=== PATIENT | female | born 1985 | race Asian ===

== ENCOUNTER 2021-02-14 08:59 | Outpatient (CLI) | payer BC, SELFPAY ==
--- NOTE | 2021-02-14 09:07 | US_ITS ---
WS: [id number] ULTRASOUND PELVIS TECHNIQUE: Transabdominal and transvaginal. ULTRASOUND PELVIS TECHNIQUE: Transabdominal. CLINICAL INFORMATION: ABNORMAL UTERINE BLEEDING : No. COMPARISON: None. FINDINGS: History of prior benign uterine mass removal. Uterus Orientation: retroverted Size: 6.7 cm x 5.6 cm x 5.1 cm. Masses: Several small fibroids measuring up to 1.5 cm Cervix: 4.2 cm. Endometrium: Normal. Endometrium thickness: 0.5 cm. Adnexa: Left ovarian cyst measuring 3.7 x 1.7 x 3.6 cm Right ovary size: 2.7 cm x 1.7 cm x 2.7 cm. Right ovary volume: 6.4 ccm3. Left ovary size: 4.7 cm x 3.3 cm x 3.3 cm. Left ovary volume: 26.3 ccm3 Free fluid: None. Other findings: None. US/US pelvic with transvaginal IMPRESSION: 1. Retroverted uterus with several small intramural fibroids. 2. Normal endometrium measuring 4.6 mm. 3. Normal cervix. 4. No adnexal masses. 5. Simple Left ovarian cyst measuring 3.7 x 1.7 x 3.6 cm 6. No free fluid in the cul-de-sac.
== END 2021-02-14 09:00 | disposition home or self-care (01) ==
PROVIDERS: Visit Provider Registered Nurse
DX: N93.9 Abnormal uterine and vaginal bleeding, unspecified (principal); N85.4 Malposition of uterus; N83.292 Other ovarian cyst, left side
CPT/HCPCS: 76830; 76856

== ENCOUNTER 2022-05-29 07:13 | Outpatient (CLI) | payer BC, SELFPAY ==
--- NOTE | 2022-05-29 | US_ITS ---
WS: [id number] Complete ABDOMINAL ULTRASOUND HISTORY: UPPER ABD PAIN, NAUSEA AND VOMITING COMPARISON: None available. Liver: 19.5 cm in length. Moderately enlarged liver. No mass or dilatation. Portal Vein: Normal hepatopetal flow with monophasic waveform. Gallbladder: Normally distended with no gallstones, wall thickening or pericholecystic fluid. Gallbladder wall thickness: 0.2 cm. Pancreas: Normal size and echogenicity. CBD: 0.4 cm. Right kidney: 12.0 cm x 6.1 cm x 4.5 cm. No mass, cortical thickening or hydronephrosis. Left kidney: 12.7 cm x 6.6 cm x 5.2 cm. No mass, cortical thickening or hydronephrosis. Spleen: Normal size and echogenicity. Abdominal aorta and IVC are within normal limits. No ascites. US/US abdomen complete* [id number] IMPRESSION: 1. Very minimal enlargement of the liver. 2. Otherwise abdomen ultrasound is negative.
== END 2022-05-29 07:14 | disposition home or self-care (01) ==
LOC: RAD 07:14
PROVIDERS: PCP Family Medicine; Visit Provider Family Medicine
DX: R11.2 Nausea with vomiting, unspecified (principal); R10.11 Right upper quadrant pain; R10.12 Left upper quadrant pain
CPT/HCPCS: 76700

== ENCOUNTER → 2022-08-19 11:40 | Outpatient (BNVA) | payer BC, SELFPAY | PROVIDERS: PCP Family Medicine; Visit Provider Nurse Practitioner Women's Health | DX: N93.9 Abnormal uterine and vaginal bleeding, unspecified (principal); I10 Essential (primary) hypertension; R07.9 Chest pain, unspecified; R94.39 Abnormal result of other cardiovascular function study; R87.612 Low grade squamous intraepithelial lesion on cytologic smear of cervix (LGSIL); R87.810 Cervical high risk human papillomavirus (HPV) DNA test positive; R10.2 Pelvic and perineal pain | CPT/HCPCS: 84443; 85025; 87491; 87591; 87624; 87661 ==

== ENCOUNTER 2022-08-27 06:53 | Outpatient (CLI) | payer BC, SELFPAY ==
[2022-08-27] VITALS (22 sets, daily range): BP systolic 123–191; BP diastolic 63–109; PULSE 22–125; RESP 15–64; TEMP 36.4–37; O2SAT 95–99; BMI 33.3
[2022-08-27] MEDS: diphenhydrAMINE 50 mg Capsule PO (07:18)
[2022-08-27] MEDS: aspirin 325 mg Tablet PO (07:19)
--- NOTE | 2022-08-27 07:30 | XACV_ITS ---
Exam Room: 2 Ht: 175 cm Wt: 75 kg BSA: 1.92 m2 Gender: Female : 1985 Any Known Allergies: Ibuprofen Exam Priority: Routine Procedure(s): Procedure Description: Diagnostic procedure Procedure Description: Left Heart Catheterization Procedure Description: Left ventriculography Procedure Description: Coronary Angiography Diagnostic Cath Status: Elective Diagnostic Findings * INDICATION: 37-year-old woman with past medical history of hypertension, family history of CAD, hypothyroidism who was referred for evaluation of chest pain. She had been noticing substernal chest discomfort. It happens both at rest and exertion. She underwent exercise stress test that was abnormal and showed ST depressions in inferolateral leads. * No significant disease noted in the Left Main, Left Anterior Descending, Right, or Circumflex coronary arteries. * Coronary angiography shows right dominance. Conclusions 1. No significant disease noted in the Left Main, Left Anterior Descending, Right, or Circumflex coronary arteries. 2. Normal left ventricular systolic function. Ejection fraction of 65%. Recommendations * Aggressive risk factor control including blood pressure control. * Outpatient cardiology follow up in 4 weeks. Interventional RX Recommendation: medical therapy and/or counseling Diagnostic RX Recommendation: medical therapy and/or counseling Anticoagulation: Heparin Ventriculography Ejection Fraction: 65.0 % Pressures Phase:Rest AO : 118 / 87 ( 103 ) @ 8:53:00 AM 119 / 84 ( 102 ) @ 8:54:00 AM 122 / 92 ( 108 ) @ 8:55:00 AM 165 / 105 ( 133 ) @ 8:59:00 AM 171 / 83 ( 127 ) @ 8:59:00 AM LV : 166 / -10 / 14 @ 8:58:00 AM 178 / 0 / 22 @ 8:59:00 AM 181 / - @ 8:59:00 AM Valves Phase:DefaultPhase AV : 16.0 @ 9:07:15 AM 16.0 @ 9:07:15 AM AV Mean Gradient: 14.0 @ 9:07:15 AM 14.0 @ 9:07:15 AM Clinical Evaluation EBL: 5mL-10mL Procedural Details Pre-Procedure Time Out. Identified patient by full name and date of as verbalized by the patient/guarantor. Does the consent match the physician's order: Yes. Accurate & Complete Informed Consent: Yes. Inpatient/Outpatient History & Physical on Chart: Yes. If H&P is completed, is and addenduem needed: No; If yes, is the addendum complete: N/A. Visualize and Verify Site with Patient/Guarantor: N/A. Relevant Radiology Images available: Yes. Pre-op teaching completed and patient verbalized understanding. The risks, benefits, and alternatives of sedation and/or procedure were discussed by physician. The patient agrees to continue. Procedure started. Current Diagnosis : Chest Pain. [facility] Clinical Fraility Score: 2: Well. 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 Chest Pain Symptom Assessment: Atypical Angina. Correct patient, site and procedure confirmed by cath team. Current diagnosis: Chest Pain. PERRLA. 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 Lungs clear x 5 lobes. IV Site on Arrival: 20 gauge in the left anticubital. IV Fluids: 0.9% NaCl at KVO. 0 mL infused prior to laborer road. Pre Procedural Pulses: bilateral dorsalis pedis was 3+. Pre Procedural Pulses: bilateral posterior tibial was 3+. Pre Procedural Pulses: bilateral radial was 3+. Oxygen started at 2liters/min via nasal canula. right groin was prepped with chloroprep then draped in the usual sterile fashion. right radial was prepped with chloroprep then draped in the usual sterile fashion. Physician notified. Baseline sample Acquired. HR: 70 BPM. Physician arrived. Physician scrubbed in. Immediate Pre-Procedure Time Out. Correct Patient: Yes; Correct Procedure: Yes; Correct Site: Yes; Correct Patient Position: Yes; Correct Supplies: Yes; Dried Flammable Prep: Yes; Blood Products Available: N/A;. Lidocaine 1% infiltrated to the right radial. Arterial access obtained. A 5 kazakh TIG catheter in over wire. Multiple views taken of left coronary artery. Catheter redirected to the RCA. Multiple views taken of right coronary artery. Catheter removed over the exchange wire. A 5 kazakh Straight Pig catheter in over wire. EDP Sample taken: LV 166/-10,14; HR: 81 BPM; SpO2: 99%. LV gram performed in PIÑA @ 10 mL/second for a total of 30 mL. EDP Sample taken: LV 178/-1,22; HR: 85 BPM; SpO2: 99%. Pullback taken: LV 181/-2,22; AO 165/105(133); Mean: 14mmHg, Peak to Peak: 16mmHg, SEP: 21sec/min; HR: 82 BPM; SpO2: 99%. Catheter removed over the exchange wire. A TR Band was successful obtaining hemostatsis at the Right Radial artery insertion site. Physician scrubbed out. Post Procedure: Pulses reassessed and unchanged. PERRLA. 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 No VTE prophylaxis required. Medication's Wasted: Lidocaine 1% = 2 mL. Medication's Wasted: Nitro = 49.8 mg. Medication's Wasted: Other = Fentanyl 25 mg. Medication's Wasted: Heparin = 1000 units. Total IV fluids: 31 mL. Post-op diagnosis: No CAD. Complications: None. Vital chart was stopped. Estimated blood loss: 5mL-10mL. Responsiveness - Normal response to verbal stimuli; alert and oriented, PERRLA. Airway - Unaffected, no intervention required; spontaneous ventilation. Circulation: W/N/L, pulses unchanged. Nausea/Vomiting: No. Procedure completed. Patient transferred by wheelchair to CPRU. Access Site Site: Right Radial artery Sheath Size: 6 Fr Hemostasis Method: TR Band Hemostasis Success: Successful Procedure Medications Start: 8:35 AM Stop: 8:35 AM Medication: Fentanyl Amount: 50 mcg Route: I.V. Start: 8:44 AM Stop: 8:44 AM Medication: Versed Amount: 1 mg Route: I.V. Start: 8:47 AM Stop: 8:47 AM Medication: Versed Amount: 1 mg Route: I.V. Start: 8:47 AM Stop: 8:47 AM Medication: Fentanyl Amount: 25 mcg Route: I.V. Start: 8:50 AM Stop: 8:50 AM Medication: Nitrogylcerin Amount: 200 mcg Route: I.A. Start: 8:52 AM Stop: 8:52 AM Medication: Heparin Amount: 5000 units Route: I.V. I, the attending physician, have reviewed and verified all procedure medications. Yes, all medications given per verbal order History/Risk Factors Hypertension: Yes Dyslipidemia: No Peripheral Arterial Disease (PAD): No Myocardial Infarction (OK): No Obesity: No Renal Disease: No Prior Interventions PCI: No CABG: No Valve Surgery: No Report Signatures Finalized by Jim Villela MD on 08/31/2022 06:04 PM
[2022-08-27 07:39] LABS: Basophils # 0.1 10^3/uL (0.0-0.1); Basophils % 0.6 %; Eosinophils # 0.4 10^3/uL (0.0-0.8); Eosinophils % 4.3 %; Hematocrit 43.2 % (37.0-47.0); Mean Corpuscular HGB Conc 32.4 g/dL (30.0-36.0); Mean Corpuscular Hemoglobin 29.1 pg (28.0-34.0); Mean Corpuscular Volume 89.8 fl (81-99); Mean Platelet Volume 8.4 fL (7.4-10.4); Monocytes # 0.7 10^3/uL (0.2-0.9); Monocytes % 6.8 %; Neutrophils # 5.43 10^3/uL (1.8-7.7); Nucleated Red Blood Cells % 0 %; Platelet Count 383 10^3/cmm (130-400); Red Blood Count 4.81 10^6/uL (4.1-5.3); White Blood Count 9.5 10^3/uL (4.0-10.0)
[2022-08-27 08:07] LABS: Anion Gap 15.6 (5-19); Blood Urea Nitrogen 14 mg/dL (6-20); Calcium 9.5 mg/dL (8.5-10.5); Carbon Dioxide 27 mmol/L (22-29); Chloride 98 mmol/L (98-107); Creatinine Clr Calc Pharmacy 151.6783; Glomerular Filtration Rate 112.5 mL/min (90-130); Glucose 110 mg/dL (65-115); Osmolality Calculated 285 mOsm/kg (285-295); Potassium 3.6 mmol/L (3.5-5.1); Sodium 137 mmol/L (136-145)
--- NOTE | 2022-08-27 08:27 | W.PM.OPSUD ---
Surgery/Procedure H&P Update DATE OF PROCEDURE: August 27, 2022 DATE H&P PERFORMED: 08/13/22 H&P UPDATE INFORMATION: I have reviewed H&P completed within last 30 days, I have examined patient prior to procedure and No changes to prior documentation PREOP DIAGNOSIS: Chest pain/ abnormal stress test PRIMARY INDICATION FOR PROCEDURE: Chest pain/ abnormal stress test PLANNED PROCEDURE: Operation Date: 08/27/22 08:30 Proposed Procedures p Left heart cath 04458,R94.39(Left) - Jim Villela M.D Possible percutaneous coronary intervention PATIENT REASSESSED PRIOR TO SEDATION, WITH NO CHANGE NOTED: Yes PHYSICAL EXAM: alert, oriented x 3, clear to auscultation bilaterally and regular rate & rhythm AIRWAY EVAL/ANESTHESIA PLAN: normal airway, ASA III, Local Anesthesia, Risks, benefits & alternatives of sedation and/or procedure discussed and Patient agrees to continue as planned ADDITIONAL INFORMATION: Moderate sedation
--- NOTE | 2022-08-27 09:10 | SUR.PHASEII ---
Received the patient back from a diagnostic [facility] via wheelchair. Patient ambulated to the bed without difficulty. A & O x3. veterinary technician placed and vital signs obtained. TR band intact to the right wrist. no bleeding or hematoma noted. palpable radial pulse. no other assessment changes noted from pre cath assessment.
--- NOTE | 2022-08-27 10:15 | SUR.PHASEII ---
Letting the air out of the TR band per protocol
--- NOTE | 2022-08-27 11:40 | SUR.PHASEII ---
Dr Villela at bedside to update the patient and her spouse. New orders received for IV BP meds.
--- NOTE | 2022-08-27 11:45 | SUR.PHASEII ---
TR band off. Site cleansed with warm water and patted dry. a large band aid was applied to the site. no bleeding or hematoma noted. palpable radial pulse.
[2022-08-27] MEDS: hyDRALAzine 20 mg/mL INJ 1 mL 10 MG IVP (12:04)
--- NOTE | 2022-08-27 12:15 | ECG_ITS ---
[facility] Test Date: 2022-08-27 Pat Name: Luis Alberto Sutherland Department: Room: Gender: Female Expediter: : 1985 Requested By: Jim Villela Order Number: [id number] Imani MD: Jim Villela M.D. Measurements Intervals [place] Rate: 116 P: 50 MS: 144 QRS: 87 QRSD: 111 T: -18 QT: 338 QTc: 470 Interpretive Statements SINUS TACHYCARDIA POSSIBLE LEFT ATRIAL ENLARGEMENT [-0.1mV P-WAVE IN V1/V2] MODERATE INTRAVENTRICULAR CONDUCTION DELAY [110+ ms QRS DURATION] ST DEVIATION AND MODERATE T-WAVE ABNORMALITY, CONSIDER LATERAL ISCHEMIA [-0.1+ mV T-WAVE IN I/aVL/V5/V6] ST DEVIATION AND MODERATE T-WAVE ABNORMALITY, CONSIDER INFERIOR ISCHEMIA [-0.1+ mV T-WAVE IN II/aVF] No previous ECG available for comparison Electronically Signed On 08-27-2022 16:28:36 ECHO VASC TECH by Jim Villela M.D. [id number]
[2022-08-27] MEDS: LORazepam 2 mg/mL INJ 1 mL 0.5 MG IVP (12:29)
[2022-08-27] MEDS: metoprolol tartrate 1 mg/1 mL SDV 5 mL 5 MG IVP (12:42)
--- NOTE | 2022-08-27 12:51 | SUR.PHASEII ---
At 1207 the patients spouse called this nurse to the room stating that she was having CP. The patient states that her CP is 10/10 with no other complaints other than that her face was hot. HR was 120s and climbing. BP 157/93. A stat EKG was ordered and Dr. Villela was notoified. Dr Villela at bedside at 1230. Ativan 0.5mg IV was ordered and given with CP now at 5/10. HR 117 with BP of 157/88. At [address] Villela ordered for the patient to be admitted to CSU for overnight observation and to also give Lopressor 5mg SIVP.
--- NOTE | 2022-08-27 13:04 | SUR.PHASEI ---
1.5MG OF ATIVAN WAS WASTED WITH EMILIANO BONNER RN WITNESS.
--- NOTE | 2022-08-27 13:05 | SUR.PHASEI ---
Patient transferred via wheelchair to CSU room 106. Report called to JOSE MARTIN Wells.
--- NOTE | 2022-08-27 13:10 | PC.NURSE ---
1.5 mg ativan wasted by obi ugalde.
--- NOTE | 2022-08-27 13:32 | USCV_ITS ---
Luis Alberto Sutherland Age: 37 Gender: F : 1985 Exam Date: 08/27/2022 17:18 Ordering Phys: Jim Villela M.D ([email or web address]) Technologist: Zach Linton [place] [facility] [place]: chest pain/tachycardia BP: 136 / 88 HR: 96 Rhythm: Sinus Technical Quality: Adequate MEASUREMENTS (Male / Female) Normal Values 2D ECHO LV Diastolic Diameter PLAX 3.1 cm 4.2 - 5.9 / 3.9 - 5.3 cm LV Systolic Diameter PLAX 2.0 cm IVS Diastolic Thickness 1.0 cm 0.6 - 1.0 / 0.6 - 0.9 cm IVS Systolic Thickness 1.3 cm LVPW Diastolic Thickness 2.4 cm 0.6 - 1.0 / 0.6 - 0.9 cm LVPW Systolic Thickness 1.9 cm LVOT Diameter 2.0 cm LV Ejection Fraction 2D Teich 68.3 % LV Ejection Fraction MOD 2C 62.2 % LV Ejection Fraction 2C AL 62.9 % LA Diameter 3.5 cm LA Width 2.6 cm LA Height 4.3 cm RA Width 2.2 cm RA Height 3.9 cm Aorta at Sinotubular Diameter 2.4 cm IVC Diameter 1.1 cm M-MODE Aortic Annulus Diameter 3.2 cm LA Ao Ratio MM 1.1 MV E Point Septal Separation 0.3 cm DOPPLER AV Peak Velocity 158.0 cm/s LVOT Peak Velocity 119.0 cm/s AV Area Cont Eq vti 2.2 cm squared AV Area Cont Eq pk 2.4 cm squared MV Peak Velocity 104.0 cm/s MV Area PHT 5.5 cm squared Mitral E to A Ratio 0.7 MV E' Velocity 32.0 cm/s Mitral E to MV E' Ratio 4.7 Mitral E to LV E' Lateral Ratio 4.0 Mitral E to LV E' Septal Ratio 5.8 TR Peak Velocity 263.6 cm/s TR Peak Gradient 27.8 mmHg TR Mean Velocity 205.5 cm/s TR Mean Gradient 17.4 mmHg TR Velocity Time Integral 56.5 cm Right Atrial Pressure 3.0 mmHg Pulmonary Artery Systolic Pressu 30.8 mmHg PV Peak Velocity 123.7 cm/s RV Acceleration Time 0.1 s RV Ejection Time 0.3 s RV AcT/ET 0.4 FINDINGS Left Ventricle Left ventricle is normal in size. LV systolic function is normal with EF of 60 to 65%. No regional wall motion abnormalities are seen. Grade 1 diastolic dysfunction. Right Ventricle Normal in size and function Right Atrium Normal in size Left Atrium Normal in size Mitral Valve Structurally normal mitral valve. Trace mitral regurgitation Aortic Valve Structurally normal aortic valve. No significant stenosis or regurgitation is seen. Tricuspid Valve Mild tricuspid regurgitation. Insufficient TR jet to calculate RVSP Pulmonic Valve Not well visualized Pericardium Normal Aorta Normal in size IVC Appears to be normal CONCLUSIONS LV systolic function is normal with EF of 60 to 65% Grade 1 diastolic dysfunction Trace mitral regurgitation Mild tricuspid regurgitation No comparison studies are available Jim Villela MD (Electronically Signed) Final Date: 28 August 2022 07:03 S
[2022-08-27] MEDS: sodium chloride 0.9% 1,000 ML 100 ML IV (13:52)
--- NOTE | 2022-08-27 14:38 | PC.NURSE ---
Patient arrived from [facility] at 1330. Patient has been pain free sense arrival to the floor. Blood pressure 149/83 heart rate 94. Patient is stable. at bedside. Nurse will continue to monitor
[2022-08-28 00:24] VITALS: BP 147/79; PULSE 79; RESP 18; O2SAT 94
[2022-08-28 03:28] LABS: Basophils # 0.1 10^3/uL (0.0-0.1); Basophils % 0.4 %; Eosinophils # 0.4 10^3/uL (0.0-0.8); Eosinophils % 3.5 %; Hematocrit 41.5 % (37.0-47.0); Hemoglobin 13.4 g/dL (11.5-15.3); Lymphocytes % 26.2 %; Mean Corpuscular HGB Conc 32.3 g/dL (30.0-36.0); Mean Corpuscular Hemoglobin 28.9 pg (28.0-34.0); Mean Corpuscular Volume 89.4 fl (81-99); Mean Platelet Volume 8.6 fL (7.4-10.4); Monocytes # 0.8 10^3/uL (0.2-0.9); Monocytes % 6.8 %; Neutrophils # 7.09 10^3/uL (1.8-7.7); Neutrophils % 62.7 %; Nucleated Red Blood Cells % 0 %; Platelet Count 350 10^3/cmm (130-400); Red Blood Count 4.64 10^6/uL (4.1-5.3); Red Cell Distribution Width 12.2 % (12.1-15.1); White Blood Count 11.3 10^3/uL (4.0-10.0)
[2022-08-28 03:59] LABS: Anion Gap 15.6 (5-19); Blood Urea Nitrogen 13 mg/dL (6-20); Carbon Dioxide 24 mmol/L (22-29); Chloride 102 mmol/L (98-107); Creatinine Clr Calc Pharmacy 151.6783; Glomerular Filtration Rate 112.5 mL/min (90-130); Glucose 112 mg/dL (65-115); Osmolality Calculated 287 mOsm/kg (285-295); Potassium 3.6 mmol/L (3.5-5.1); Sodium 138 mmol/L (136-145)
[2022-08-28 04:00] VITALS: BP 103/76; PULSE 84; RESP 16; TEMP 37.1; O2SAT 96
[2022-08-28 06:00] VITALS: PULSE 74
[2022-08-28 08:00] VITALS: BP 149/79; PULSE 78; RESP 25; TEMP 36.7
--- NOTE | 2022-08-28 08:04 | P.DS_ITS ---
Discharge Providers Date of Admission: 08/27/2022 Date of Discharge: August 28, 2022 Attending Provider at Admission: Jim Villela MD Attending Provider at Discharge: Jim Villela M.D Primary Care Provider: Orly Vergara DO Reason for Visit Reason for Visit: R94.39 Brief History: 37-year-old woman with past medical history of hypertension has been having shortness of breath, chest pain and had abnormal stress test who has presented for left heart cath with possible percutaneous coronary intervention. Hospital Course Hospital Course Patient's coronary angiogram was unremarkable. Blood pressure was elevated. She received hydralazine to which she had a reaction with flushing of the face, chest pain and tachycardia. We observed her overnight. Chest pain resolved and tachycardia improved. Her antihypertensive medications were uptitrated. She was discharged home in a stable condition. Physical Exam Narrative: GENERAL: Patient is alert, awake and oriented x3. [] NECK: No jugular vein distension. [] HEENT: No cyanosis. No icterus. No pallor. [] HEART: Regular S1 and S2. No murmur, rub or gallop. [] LUNGS: Clear to auscultate bilaterally. [] CENTRAL NERVOUS SYSTEM: Grossly nonfocal. [] EXTREMITIES: Lower extremities with no edema bilaterally. Pulses palpable in the lower extremities, both dorsalis pedis and posterior tibial. [] Discharge Data Studies Completed and Pending Completed Studies During Hospitalization Category Date Time Status CV. echo complete* [id number] Routine Ultrasound 08/27/22 13:32 Completed Pending at discharge Category Date Time Status [employer]PERVISOR request for service Routine Exams 08/27/22 07:30 Taken Laboratory Results WBC 11.3 10^3/uL (4.0-10.0) H 08/28/22 03:01 RBC 4.64 10^6/uL (4.1-5.3) 08/28/22 03:01 Hgb 13.4 g/dL (11.5-15.3) 08/28/22 03:01 Hct 41.5 % (37.0-47.0) 08/28/22 03:01 MCV 89.4 fl (81-99) 08/28/22 03:01 MCH 28.9 pg (28.0-34.0) 08/28/22 03:01 MCHC 32.3 g/dL (30.0-36.0) 08/28/22 03:01 RDW 12.2 % (12.1-15.1) 08/28/22 03:01 Plt Count 350 10^3/cmm (130-400) 08/28/22 03:01 MPV 8.6 fL (7.4-10.4) 08/28/22 03:01 Neut % (Auto) 62.7 % 08/28/22 03:01 Lymph % (Auto) 26.2 % 08/28/22 03:01 [place] % (Auto) 6.8 % 08/28/22 03:01 Eos % (Auto) 3.5 % 08/28/22 03:01 Baso % (Auto) 0.4 % 08/28/22 03:01 Neut # (Auto) 7.09 10^3/uL (1.8-7.7) 08/28/22 03:01 Lymph # (Auto) 3.0 10^3/uL (0.8-4.8) 08/28/22 03:01 [place] # (Auto) 0.8 10^3/uL (0.2-0.9) 08/28/22 03:01 Eos # (Auto) 0.4 10^3/uL (0.0-0.8) 08/28/22 03:01 Baso # (Auto) 0.1 10^3/uL (0.0-0.1) 08/28/22 03:01 Nucleated RBC % (auto) 0 % 08/28/22 03:01 Nucleated RBCs # 0.0 /100WBC 08/28/22 03:01 Sodium 138 mmol/L (136-145) 08/28/22 03:01 Potassium 3.6 mmol/L (3.5-5.1) 08/28/22 03:01 Chloride 102 mmol/L (98-107) 08/28/22 03:01 Carbon Dioxide 24 mmol/L (22-29) 08/28/22 03:01 Anion Gap 15.6 (5-19) 08/28/22 03:01 BUN 13 mg/dL (6-20) 08/28/22 03:01 Creatinine 0.6 mg/dL (0.5-0.9) 08/28/22 03:01 GFR Calculation 112.5 mL/min (90-130) 08/28/22 03:01 Glucose 112 mg/dL (65-115) 08/28/22 03:01 Calculated Osmolality 287 mOsm/kg (285-295) 08/28/22 03:01 Calcium 9.0 mg/dL (8.5-10.5) 08/28/22 03:01 Vitals Last Vital Signs Temp 98.7 F 08/28/22 04:00 Pulse 74 08/28/22 06:00 Resp 16 08/28/22 04:00 BP 103/76 08/28/22 04:00 Pulse Ox 96 08/28/22 04:00 O2 Del Method 08/28/22 04:00 O2 Flow Rate 2 08/27/22 13:00 Discharge Plan Discharge Patient Disposition: Home Prescriptions: New losartan 50 mg tablet 50 mg PO BID Qty: 120 2RF Continued levothyroxine 100 mcg tablet 100 mcg PO DAILY hydrochlorothiazide 25 mg tablet 25 mg PO DAILY cholecalciferol (vitamin D3) 125 mcg (5,000 unit) capsule 125 mcg PO DAILY clonidine HCl 0.1 mg tablet 0.1 mg PO BID PRN (Reason: hypertensive emergency) valacyclovir 500 mg tablet 500 mg PO DAILY ondansetron HCl 4 mg tablet 4 mg PO Q8H PRN (Reason: Nausea) cetirizine [All Day Allergy (cetirizine)] 10 mg tablet 10 mg PO DAILY PRN (Reason: Allergy Symptoms) Vit E tablet 1 tab PO DAILY Multivitamin 1 tab PO DAILY Discontinued losartan 25 mg tablet 50 mg PO DAILY losartan 100 mg tablet 100 mg PO BID Qty: 90 3RF Discharge Orders: Discharge Order (Routine); Ordered 08/28/22 Ordered By: Jim Villela Referrals: Jim Villela M.D [Physician] - 09/02/22 12:30 pm Diet: Low Salt Activity: Increase activity as tolerated Patient Instructions: Midazolam (By injection), Fentanyl (By injection), Moderate Sedation (DC), After Radial Heart Catheterization (GEN) Activity Restrictions/Additional Instructions: No lifting more than 10 pounds with the right arm for 5 days Stand Alone Forms: Work/School Release Discharge Date/Time: 08/28/22 09:58 Discharge Attestations Time Spent in Discharge Care*: greater than 30 min Quality Metrics Clinical Quality Measures [ No reported AMI, CVA or VTE this stay] Coding Level of Care Code Acute Code for Chg Fwd
--- NOTE | 2022-08-28 09:59 | PC.NURSE ---
Pt discharged to home with spouse. IV cath removed with cathlon intact. Voiced understanding of dishcharge instructions. Belongings sent home with pt.
== END 2022-08-28 09:58 | disposition home or self-care (01) ==
LOC: CCL 10:22 → CSU 13:58
PROVIDERS: PCP Family Medicine; Visit Provider Internal Medicine
DX: R07.89 Other chest pain (principal); I10 Essential (primary) hypertension; Z82.49 Family history of ischemic heart disease and other diseases of the circulatory system; E03.9 Hypothyroidism, unspecified
CPT/HCPCS: 36415; 80048; 85025; 93005; 93306; 93458; 96361; 96365; 96376; 99152; 99153; C1769; C1887; C1894; J0360; J1644; J2060; J2250; J3010; J3490; J7030; Q0163; Q9967

== ENCOUNTER → 2022-08-29 15:30 | Outpatient (BNVA) | payer BC, SELFPAY | PROVIDERS: PCP Family Medicine; Visit Provider Nurse Practitioner Women's Health | DX: N93.9 Abnormal uterine and vaginal bleeding, unspecified (principal) | CPT/HCPCS: 76830 ==

== ENCOUNTER 2022-09-08 07:07 | Outpatient (CLI) | payer BC, SELFPAY ==
[2022-09-15 17:10] LABS: Metanephrines Total Urine 525 mL; Urine Metanephrines Total 277 mcg/24 h (115-695)
== END 2022-09-08 07:08 | disposition home or self-care (01) ==
PROVIDERS: PCP Family Medicine; Visit Provider Internal Medicine
DX: N93.9 Abnormal uterine and vaginal bleeding, unspecified (principal); R87.612 Low grade squamous intraepithelial lesion on cytologic smear of cervix (LGSIL)
CPT/HCPCS: 83835

== ENCOUNTER → 2022-09-16 15:25 | Outpatient (BNVA) | payer BC, SELFPAY | PROVIDERS: PCP Family Medicine; Visit Provider Obstetrics & Gynecology | DX: R94.39 Abnormal result of other cardiovascular function study (principal) | CPT/HCPCS: 83001; 84146; 84702 ==

== ENCOUNTER → 2022-09-30 13:00 | Outpatient (BNVA) | payer BC, SELFPAY | PROVIDERS: PCP Family Medicine; Visit Provider Obstetrics & Gynecology | DX: Z01.818 Encounter for other preprocedural examination (principal); R87.810 Cervical high risk human papillomavirus (HPV) DNA test positive | CPT/HCPCS: 81025; 88305 ==

== ENCOUNTER → 2022-10-01 10:33 | Outpatient (BNVA) | payer BC, SELFPAY | PROVIDERS: PCP Family Medicine; Visit Provider Podiatrist Foot & Ankle Surgery | DX: M21.622 Bunionette of left foot (principal); M21.621 Bunionette of right foot; M72.2 Plantar fascial fibromatosis | CPT/HCPCS: 73630 ==

== ENCOUNTER 2022-10-03 08:01 | Outpatient (CLI) | payer BC, SELFPAY ==
--- NOTE | 2022-10-03 08:45 | USCV_ITS ---
Luis Alberto Sutherland Age: 37 Gender: F : 1985 Exam Date: 10/03/2022 08:27 Ordering Phys: Yesenia Bernard Technologist: Sharon Méndez [place] [facility] [place] Indication: weakness and pain warren wrist- s/p post cath rt radial artery Risk Factors: n/a Previous Vascular Surgery: recent cath - right radial artery access Right BP: 160.00 / 99.00 Left BP: / RIGHT LEFT PSV PSV (cm/s) (cm/s) Waveform Waveform Triphasic 132.1 Subclavian Proximal Triphasic 110.3 Axillary Triphasic 130.6 Brachial Mid Triphasic 65.3 Radial Proximal Monophasic 45.2 Radial Mid Monophasic 25.0 Radial at Wrist Triphasic 40.8 Ulnar Proximal Monophasic 45.4 Ulnar Mid Monophasic 55.8 Ulnar at Wrist FINDINGS No pressure for brachial index done due to recent rt radial cath and minor swelling. Allens test performed on both right radial and right ulnar arteries with normal reperfusion. Normal Doppler waveforms and velocities in the subclavian, brachial and proximal radial and ulnar arteries on the right side Diminished Doppler velocity and abnormal Doppler waveform in the mid and distal ulnar artery on the right side Normal Doppler velocities with the abnormal Doppler waveform in the mid and distal ulnar artery on the right CONCLUSIONS 1. Patent right radial artery on the right side. 2. Abnormal Doppler features in the radial artery may suggest distal occlusive disease 3. Positive Gm's test, suggesting adequate perfusion No similar previous studies are available for comparison Dr Saúl Knight MD [facility] (Electronically Signed) Final Date: 04 October 2022 17:54 S
== END 2022-10-03 08:02 | disposition home or self-care (01) ==
LOC: RAD 08:03
PROVIDERS: PCP Family Medicine; Visit Provider Nurse Practitioner Family
DX: M25.531 Pain in right wrist (principal); R53.1 Weakness
CPT/HCPCS: 93931

== ENCOUNTER → 2022-10-20 09:25 | Outpatient (BNVA) | payer BC, SELFPAY | PROVIDERS: PCP Family Medicine; Referring Provider Podiatrist Foot & Ankle Surgery; Visit Provider Student in an Organized Health Care Education/Training Program | DX: M76.31 Iliotibial band syndrome, right leg (principal); M25.561 Pain in right knee | CPT/HCPCS: 73560; 73565 ==

== ENCOUNTER 2022-10-29 09:07 | Day surgery (SDC) | payer BC, SELFPAY ==
[2022-10-27 10:59] VITALS: BMI 31.8
--- NOTE | 2022-10-27 11:21 | ANES.PREANE2 ---
Pre-Anesthetic Assessment Height/Weight: Height 1.52 m Weight 73.936 kg Preop Diagnosis: Chest pain/ abnormal stress test Cervical Cone Biopsy Familial anesthetic complications: none Social No alcohol and No tobacco Exam alert, oriented x 3, clear to auscultation bilaterally and regular rate & rhythm Airway Mallampati: Class I Dentition: other (missing) CV/HEM Stable Angina (clear cath, normal echo) and Hypertension (requiring multiple medications) GI Gastroesophageal Reflux Disease Metabolic Thyroid Disease Anesthetic Plan ASA status: 2 Anesthesia: General Risk of > 500 ml blood loss (7ml/kg in children): No Medications/Allergies Home Medications Medication Instructions Recorded Confirmed Last Taken Type cholecalciferol (vitamin D3) 125 125 mcg PO DAILY 11/28/20 10/27/22 10/27/22 History mcg (5,000 unit) capsule hydrochlorothiazide 25 mg tablet 25 mg PO DAILY 11/28/20 10/27/22 10/27/22 History levothyroxine 100 mcg tablet 100 mcg PO DAILY 11/28/20 10/27/22 10/27/22 History Multivitamin 1 tab PO DAILY 08/13/22 10/27/22 10/27/22 History Vit E 1 tab PO DAILY 08/13/22 10/27/22 10/27/22 History cetirizine 10 mg tablet (All Day 10 mg PO DAILY PRN Allergy Symptoms 08/13/22 10/27/22 10/27/22 History Allergy (cetirizine)) clonidine HCl 0.1 mg tablet 0.1 mg PO BID PRN hypertensive 08/13/22 10/27/22 09/29/22 History emergency ondansetron HCl 4 mg tablet 4 mg PO Q8H PRN Nausea 08/13/22 10/27/22 07/28/22 History valacyclovir 500 mg tablet 500 mg PO DAILY 08/13/22 10/27/22 10/27/22 History metoprolol tartrate 25 mg tablet 25 mg PO BID #180 tabs 09/02/22 10/27/22 10/27/22 Rx losartan 50 mg tablet 50 mg PO BID #180 tabs 09/05/22 10/27/22 10/27/22 Rx metoprolol tartrate 50 mg tablet 50 mg PO BID #180 tabs 09/22/22 10/27/22 10/27/22 Rx ketoconazole 2 % topical cream 1 applic topical BID #15 grams 09/24/22 10/27/22 10/27/22 Rx methylprednisolone 4 mg tablets in 4 mg PO DAILY #21 ea 10/01/22 10/27/22 10/27/22 Rx a dose pack (Medrol (Isaias)) Allergies Allergy/AdvReac Type Severity Reaction Status Date / Time hydralazine Allergy Severe SVT Verified 10/27/22 10:56 ibuprofen Allergy Unknown ADR-Abdominal Verified 10/27/22 10:56 Pain PFSH Anesthesia Medical History Essential (primary) hypertension Genital herpes oral and on buttocks GERD (gastroesophageal reflux disease) Hypothyroidism No pertinent past medical history neghx: dm,dvt/pe PCP: Dr. Ursula DO Surgical History H/O exploratory laparotomy (~2013) removal of ovarian cyst-- benign. Performed in the [facility] History of carpal tunnel surgery of left wrist History of carpal tunnel surgery of right wrist Family History Father Diabetes Family/Other Ovarian cancer maternal aunt Denies family history of Colon cancer Heart disease Breast cancer Family history of thyroid problem Hypertension Uterine cancer Stroke Hyperchloremia Female Reproductive History Date of last menstrual period: 10/17/22 Data Anesthesia Cardiac Studies: Echocardiogram 08/27/22
[2022-10-27 11:51] LABS: OR HCG Qualitative Urine Negative (Negative)
[2022-10-27 12:45] LABS: Basophils # 0.1 10^3/uL (0.0-0.1); Basophils % 0.6 %; Eosinophils # 0.1 10^3/uL (0.0-0.8); Eosinophils % 0.6 %; Hematocrit 41.1 % (37.0-47.0); Hemoglobin 13.4 g/dL (11.5-15.3); Lymphocytes # 3.4 10^3/uL (0.8-4.8); Lymphocytes % 37.7 %; Mean Corpuscular HGB Conc 32.6 g/dL (30.0-36.0); Mean Corpuscular Hemoglobin 29.5 pg (28.0-34.0); Mean Corpuscular Volume 90.3 fl (81-99); Mean Platelet Volume 8.3 fL (7.4-10.4); Monocytes # 0.6 10^3/uL (0.2-0.9); Monocytes % 6.5 %; Neutrophils # 4.94 10^3/uL (1.8-7.7); Neutrophils % 54.3 %; Nucleated Red Blood Cells % 0 %; Platelet Count 422 10^3/cmm (130-400); Red Blood Count 4.55 10^6/uL (4.1-5.3); Red Cell Distribution Width 11.9 % (12.1-15.1); White Blood Count 9.1 10^3/uL (4.0-10.0)
[2022-10-27 13:05] LABS: Alanine Aminotransferase 33 U/L (0-33); Albumin Level 4.9 g/dL (3.5-5.2); Alkaline Phosphatase 53 U/L (35-105); Anion Gap 12.6 (5-19); Aspartate Amino Transferase 16 U/L (0-32); Blood Urea Nitrogen 12 mg/dL (6-20); Calcium 8.7 mg/dL (8.5-10.5); Carbon Dioxide 24 mmol/L (22-29); Chloride 99 mmol/L (98-107); Globulin 2.9 g/dL (1.3-4.6); Glomerular Filtration Rate 138.8 mL/min (90-130); Glucose 94 mg/dL (65-115); Osmolality Calculated 274 mOsm/kg (285-295); Potassium 3.6 mmol/L (3.5-5.1); Sodium 132 mmol/L (136-145); Total Bilirubin 0.3 mg/dL (0.15-1.2); Total Protein 7.8 g/dL (6.6-8.7)
[2022-10-29] VITALS (7 sets, daily range): BP systolic 102–135; BP diastolic 55–72; PULSE 54–76; RESP 14–18; TEMP 36.1–36.3; O2SAT 97–100
[2022-10-29] MEDS: scopolamine 1.5 Patch 1 PATCH TRANSDERMA (09:52)
[2022-10-29] MEDS: sodium chloride 0.9% 500 ML IV (09:57)
--- NOTE | 2022-10-29 09:59 | ANE.PACU2 ---
Inpatient post-anesthesia follow up: Airway intact: Yes Vital signs: Temperature 97 F Pulse Rate 54 Respiratory Rate 16 Blood Pressure 124/72 Pulse Oximetry 97 Oxygen Delivery Me thod Room Air Oxygen Flow Rate Fraction of Inspir ed Oxygen Hydration adequate: Yes Nausea and vomiting: No Pain level: 1 Mental status: Baseline
--- NOTE | 2022-10-29 10:43 | W.PM.OPSUD ---
Surgery/Procedure H&P Update DATE OF PROCEDURE: October 29, 2022 DATE H&P PERFORMED: 10/27/22 H&P UPDATE INFORMATION: I have reviewed H&P completed within last 30 days, I have examined patient prior to procedure and No changes to prior documentation PREOP DIAGNOSIS: High-grade intraepithelial squamous lesion PLANNED PROCEDURE: Operation Date: 10/29/22 11:35 Proposed Procedures p Cervical cone biopsy 73041,N87.1(Not Applicable) - Freddy Gibson MD
[2022-10-29] MEDS: sodium chloride 0.9% 1,000 ML 30 ML IV (10:51)
[2022-10-29] MEDS: ceFAZolin 2,000 MG in sodium chloride 0.9% (plus) 50 ML 100 MG IV (12:43)
[2022-10-29] MEDS: lidocaine-epi 1% 20 mL INJ INJECTION (13:26)
--- NOTE | 2022-10-29 13:51 | PM.OP ---
Operative Report Date of procedure: October 29, 2022 Pre-op diagnosis: Preop Diagnosis High-grade intraepithelial squamous lesion Post-op diagnosis: Same as above Procedure done: Cone biopsy Surgeon: Freddy Gibson MD Estimated blood loss (mL): 10 IV fluids (mL): 1,250 Complications: None Procedure: After informed consent, the patient was taken to the operating room where general anesthesia was administered without difficulty. After administration of general anesthesia, the patient was placed in the dorsal lithotomy position, and prepped and draped in the usual sterile fashion. A time-out procedure was performed. The patient was examined under anesthesia and found to have a normal uterus with normal adnexa. A weighted speculum was then placed in the patient's vagina and the anterior lip of the cervix grasped with the singed toothed tenaculum A uterine sound was then advanced into the cervix to determine its direction and length. The decending cervical branchs of the uterine arteries were ligated with 2-0 Vicryl bilaterally at the level of the internal os. Attention was then turned to the cervix where it was stain with Lugol?s solution to hightlight the lesion. The paracervical area was then circumferentially infiltrated using Lidocaine 1% with epinephrine. A Own[employer] Cone Biopsy Excisor was used to cut the cone biopsy in circular fashion and following removal of the specimen a suture was placed at the 12 o?clock location and fixed in formalin. The Sturmdorf suture with 3-O Vycril was applied. Bleeding was minimal. The patient tolerated the procedure well, sponge, lap and needle counts were correct times two She was taken to the recovery room in good condition.
--- NOTE | 2022-10-29 14:04 | ANE.PACU2 ---
Inpatient post-anesthesia follow up: Airway intact: Yes Vital signs: Temperature 97.0 F Pulse Rate 73 Respiratory Rate 17 Blood Pressure 118/63 Pulse Oximetry 100 Oxygen Delivery Me thod Room Air Oxygen Flow Rate 6 Fraction of Inspir ed Oxygen Hydration adequate: Yes Nausea and vomiting: No Pain level: 1 Mental status: Baseline
== END 2022-10-29 14:44 | disposition home or self-care (01) ==
PROVIDERS: PCP Family Medicine; Visit Provider Obstetrics & Gynecology
PROC: 0UB97ZZ Excision of Uterus, Via Natural or Artificial Opening (ICD-10-PCS; CPT 57520; principal; 2022-10-29 11:25)
DX: R87.613 High grade squamous intraepithelial lesion on cytologic smear of cervix (HGSIL) (principal); I20.8 Other forms of angina pectoris; I10 Essential (primary) hypertension; K21.9 Gastro-esophageal reflux disease without esophagitis; E03.9 Hypothyroidism, unspecified
CPT/HCPCS: 57522; 36415; 80053; 84703; 85025; 86850; 86900; 88307; J0690; J1100; J2405; J2704; J3010; J7030; J7040

== ENCOUNTER → 2023-08-20 11:18 | Outpatient (BNVA) | payer OTHER, SELFPAY | PROVIDERS: Visit Provider Family Medicine | DX: I10 Essential (primary) hypertension (principal); E03.9 Hypothyroidism, unspecified; K21.9 Gastro-esophageal reflux disease without esophagitis | CPT/HCPCS: 80053; 80061; 84443; 85025 ==

== ENCOUNTER → 2023-12-28 12:08 | Outpatient (BNVA) | payer OTHER, SELFPAY | PROVIDERS: PCP Family Medicine; Visit Provider Obstetrics & Gynecology | DX: D06.9 Carcinoma in situ of cervix, unspecified (principal); E03.9 Hypothyroidism, unspecified; Z48.816 Encounter for surgical aftercare following surgery on the genitourinary system | CPT/HCPCS: 83001; 84443; 87624 ==

== ENCOUNTER → 2024-01-19 08:01 | Outpatient (BNVA) | payer OTHER, SELFPAY | PROVIDERS: PCP Family Medicine; Visit Provider Obstetrics & Gynecology | DX: C53.9 Malignant neoplasm of cervix uteri, unspecified (principal); N83.8 Other noninflammatory disorders of ovary, fallopian tube and broad ligament | CPT/HCPCS: 76830 ==

== ENCOUNTER → 2024-03-29 09:26 | Day surgery (SDC) | payer OTHER, SELFPAY | LOC: OPS 05-19 12:20 | PROVIDERS: PCP Family Medicine Adult Medicine; Visit Provider Obstetrics & Gynecology | DX: Z01.818 Encounter for other preprocedural examination (principal) | CPT/HCPCS: 93005 ==

== ENCOUNTER 2024-04-05 14:09 | Inpatient (IN) | payer OTHER, SELFPAY ==
--- NOTE | 2024-03-29 09:59 | ECG_ITS ---
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 Measurements Intervals [place] Rate: 55 P: 41 [place]: 180 QRS: 65 QRSD: 100 T: 35 QT: 415 QTc: 398 Interpretive Statements SINUS BRADYCARDIA Compared to ECG 08/27/2022 12:14:02 Sinus tachycardia no longer present Intraventricular conduction delay no longer present T-wave abnormality no longer present Possible ischemia no longer present Electronically Signed On 03-29-2024 16:45:23 CDT by Jim Villela M.D. [id number]
[2024-03-29 10:13] LABS: Charge for UA Resulting for Rev
[2024-03-29 10:21] LABS: Basophils % 0.5 %; Eosinophils # 0.2 10^3/uL (0.0-0.8); Eosinophils % 2.4 %; Lymphocytes # 2.6 10^3/uL (0.8-4.8); Lymphocytes % 29.9 %; Mean Corpuscular HGB Conc 32.1 g/dL (30-55); Mean Corpuscular Hemoglobin 28.8 pg (27-33); Mean Corpuscular Volume 89.7 fl (85-98); Mean Platelet Volume 8.3 fL (7.4-10.4); Monocytes # 0.7 10^3/uL (0.2-0.9); Monocytes % 7.8 %; Neutrophils # 5.15 10^3/uL (1.8-7.7); Neutrophils % 58.9 %; Nucleated Red Blood Cells % 0 %; Platelet Count 447 10^3/cmm (157-399); Red Blood Count 4.68 10^6/uL (3.85-5.65); Red Cell Distribution Width 12.7 % (12.1-15.1); White Blood Count 8.73 10^3/uL (3.29-11.43)
[2024-03-29 10:23] LABS: Bilirubin Urine Negative (Negative); Blood Urine Negative (Negative); Glucose Urine UA Negative (Normal); Ketones Urine Negative (Negative); Leukocyte Esterase Urine Negative (Negative); Nitrate Urine Negative (Negative); Protein Urine 1+ (Negative); Specific Gravity, Urine 1.026 (1.005-1.030); Urine Appearance Clear (CLEAR); Urine Color Yellow (Yellow); pH Urine 5.5 (5-7)
--- NOTE | 2024-03-29 10:24 | P.ANESASSM_ITS ---
Pre-Anesthetic Assessment Height/Weight: Height 1.52 m Preop Diagnosis: Uterine fibroid, chronic pelvic pain, right ovarian cyst/mass Operation Date: 04/05/24 10:35 Proposed Procedures p Total Abdominal Hysterectomy 11624,R10.2, D25.9, N83.8(Not Applicable) - Freddy Gibson MD s Laparoscopic Oophorectomy(Right) - Freddy Gibson MD Familial anesthetic complications: None Social No alcohol and No tobacco Exam alert, oriented x 3, clear to auscultation bilaterally and regular rate & rhythm CV/HEM Stable Angina and Hypertension Negative cath - no blockages No CP recently hx heart block GI Gastroesophageal Reflux Disease Metabolic Thyroid Disease Anesthetic Plan ASA status: 3 Anesthesia: General Risk of > 500 ml blood loss (7ml/kg in children): No Other Pertinent Information alpha gal allergy - anaphylaxis and GI upset Medications/Allergies Home Medications Medication Instructions Recorded Confirmed Last Taken Type losartan 50 mg tablet 50 mg PO BID #180 tabs 09/10/23 03/29/24 03/29/24 Rx metoprolol tartrate 50 mg tablet 50 mg PO BID #180 tabs 09/10/23 03/29/24 03/29/24 Rx valacyclovir 500 mg tablet 500 mg PO DAILY #90 tabs 12/25/23 03/29/24 03/29/24 Rx levothyroxine 125 mcg tablet 125 mcg PO DAILY #60 tabs 01/18/24 03/29/24 03/29/24 Rx amlodipine 5 mg tablet 5 mg PO DAILY #90 tabs 02/01/24 03/29/24 03/29/24 Rx pantoprazole 40 mg tablet,delayed 40 mg PO DAILY #60 tabs 02/15/24 03/29/24 03/29/24 Rx release metoclopramide HCl 10 mg tablet 10 mg PO QID PRN nausea and 03/08/24 03/29/24 03/25/24 Rx (Reglan) vomiting #120 tabs Allergies Allergy/AdvReac Type Severity Reaction Status Date / Time hydralazine Allergy Severe SVT Verified 03/08/24 14:51 ibuprofen Allergy Unknown ADR-Abdominal Verified 03/08/24 14:51 Pain Alpha-Gal Allergy ALGY-Anaphy Verified 03/29/24 09:47 (Frrnzownc-Xbmvb-8,3-Gala laxis PFSH Anesthesia Medical History (Updated 03/28/24 @ 19:47 by Jesus Lazo MD) Abnormal stress test Chronic vomiting 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 Ursula DO Hypothyroidism GERD (gastroesophageal reflux disease) Essential (primary) hypertension Surgical History Hx of esophagogastroduodenoscopy 03/31/2023 H/O exploratory laparotomy (~2013) removal of Lt ovarian cyst-- benign. Performed in the [facility] History of carpal tunnel surgery of left wrist History of carpal tunnel surgery of right wrist Family History Father Diabetes Hypertension Family/Other Ovarian cancer maternal aunt Hypertension Mother Hypertension Denies family history of Colon cancer Heart disease Breast cancer Family history of thyroid problem Uterine cancer Stroke Hyperchloremia Social History (Updated 03/25/24 @ 08:25 by Lupis Claros LPN) Smoking and tobacco/nicotine status: never used tobacco/nicotine Data Anesthesia 03/29/24 10:00 03/29/24 10:00 Short CBC 03/29/24 Range/Units 10:00 WBC 8.73 (3.29-11.43) 10^3/uL Hgb 13.50 (11.27-16.99) g/dL Hct 42.0 (36-47) % MCV 89.7 (85-98) fl Plt Count 447 H (157-399) 10^3/cmm Neut % (Auto) 58.9 % Neut # (Auto) 5.15 (1.8-7.7) 10^3/uL Urine 03/29/24 Range/Units 09:40 Urine Color Yellow (Yellow) Urine Appearance Clear (CLEAR) Urine pH 5.5 (5-7) Ur Specific [place] 1.026 (1.005-1.030) Urine Protein 1+ A (Negative) Urine Glucose (UA) Negative (Normal) Urine Ketones Negative (Negative) Urine Nitrate Negative (Negative) Urine Bilirubin Negative (Negative) Ur Leukocyte Esterase Negative (Negative) Cardiac Studies: 2 Echocardiogram 08/27/22 Cardiac Event Monitor 06/12/23
[2024-03-29 10:37] LABS: Alanine Aminotransferase 28 U/L (0-33); Albumin Level 4.6 g/dL (3.5-5.2); Alkaline Phosphatase 65 U/L (35-105); Aspartate Amino Transferase 19 U/L (0-32); Blood Urea Nitrogen 13 mg/dL (6-20); Calcium 8.7 mg/dL (8.5-10.5); Carbon Dioxide 23 mmol/L (22-29); Chloride 101 mmol/L (98-107); Globulin 2.9 g/dL (1.3-4.6); Glomerular Filtration Rate 111.9 mL/min (90-130); Glucose 106 mg/dL (65-115); Osmolality Calculated 287 mOsm/kg (285-295); Sodium 138 mmol/L (136-145); Total Bilirubin 0.2 mg/dL (0.15-1.2); Total Protein 7.5 g/dL (6.6-8.7)
[2024-03-29 10:37] LABS: UA Manual Slide Review YES; UA Slide Review UA Slide Review Perf
[2024-03-29 10:39] LABS: Add Urine Culture? No
[2024-04-05] VITALS (20 sets, daily range): BP systolic 114–150; BP diastolic 69–85; PULSE 59–98; RESP 14–20; TEMP 36.4–36.9; O2SAT 90–100; BMI 35.1
[2024-04-05] MEDS: sodium chloride 0.9% 500 ML IV (09:35)
[2024-04-05] MEDS: scopolamine 1.5 Patch 1 PATCH TRANSDERMA (09:36)
[2024-04-05 09:40] LABS: OR HCG Qualitative Urine Negative (Negative)
--- NOTE | 2024-04-05 09:46 | W.PM.OPSUD ---
Surgery/Procedure H&P Update DATE OF PROCEDURE: April 05, 2024 DATE H&P PERFORMED: 03/25/24 H&P UPDATE INFORMATION: I have reviewed H&P completed within last 30 days, I have examined patient prior to procedure and No changes to prior documentation PREOP DIAGNOSIS: Chronic pelvic pain, right ovarian cyst/mass, dyspareunia, dysmenorrhea PLANNED PROCEDURE: Operation Date: 04/05/24 10:35 Proposed Procedures p Total Abdominal Hysterectomy 89488,R10.2, D25.9, N83.8(Not Applicable) - Freddy Gibson MD s Laparoscopic Oophorectomy(Right) - Freddy Gibson MD
[2024-04-05] MEDS: ceFAZolin 2,000 mg SDV 2000 MG IVP (09:54)
[2024-04-05] MEDS: sodium chloride 0.9% 1,000 ML 30 ML IV (10:02)
[2024-04-05] MEDS: metroNIDAZOLE IV 500 MG/100 ML PREMIX 100 MG IV (10:07)
[2024-04-05] MEDS: BUPivacaine liposome 13.3 mg/mL SDV 20 mL 266 MG INFILTRATI (12:59)
[2024-04-05] MEDS: BUPivacaine 0.5% INJ 30 mL INJECTION (13:00)
--- NOTE | 2024-04-05 14:02 | W.PM.BPON ---
Date of Procedure: 04/05/24 Surgeon: Freddy Gibson MD Incident Response Engineer(s): Procedure(s) performed: Total abdominal hysterectomy with right salpingo-oophorectomy Findings of the procedure(s): Enlarged irregular uterus Estimated blood loss: 50 Specimen(s) removed: Uterus and right fallopian tube and ovary Post-operative diagnosis: Status post KASSIE and RSO
--- NOTE | 2024-04-05 14:03 | P.OP_ITS ---
Operative Report Date of procedure: April 05, 2024 Pre-op diagnosis: Pelvic pain Uterine fibroid Dysmenorrhea Dyspareunia Abnormal uterine bleed Post-op diagnosis: same Post-op findings: Enlarged irregular uterus Procedure done: Total abdominal hysterectomy Right salpingo-oophorectomy Specimens removed/disposition: Uterus Right fallopian tube and ovary Surgeon: Freddy Gibson MD Estimated blood loss (mL): 50 IV fluids (mL): 1,000 Urine output (mL): 75 Complications: None Procedure: The patient was taken to the operating room, and after adequate level of general anesthesia was achieved, the patient was placed in the Trendelenburg position, prepped and draped in the usual sterile fashion. Subsequently, a Pfannenstiel incision was made and the incision was taken down to the fascia. The fascia was opened up sharply. The fascia was extended to the length of the incision using the Lira scissors. At this time, the rectus muscles were dissected from the fascia superiorly and inferiorly to the symphysis pubis. The midline rectus muscles were opened sharply and extended superiorly and inferiorly. The peritoneum was visualized, grasped, opened sharply, and extended superiorly and inferiorly towards the bladder. The abdominal contents were packed superiorly away from the operative site using the lap packs. At this time, the pelvic organs were noted. The inferior and superior blades were placed in place on the Freddie self-retaining retractor. Bowel was packed away from the operative site. The fundus of the uterus was then grasped with a triple-tooth tenaculum and retracted out of the pelvic cavity into the abdominal site. At this point, Tracie clamps were placed in both right and left adnexal regions. Subsequently, using the LigaSure cautery unit, the round ligaments were grasped, cauterized, and dissected. The bladder flap was then formed and the bladder flap was pushed away down anteriorly over the lower uterine segment, pushed away from the operative site on both the right and left sides. Subsequently, the posterior leaf of the broad ligament was opened sharply and the LigaSure instrument was then placed below the level of the ovary in both the right and left side, care being taken not to damage bowel or uterus and the infundibulopelvic ligament was then gras ped, cauterized, and again dissected. Further dissection of the broad ligament was carried down posteriorly towards the uterine vessels. The bladder was pushed inferiorly down towards the vagina. Subsequently, the uterine vessels were then grasped again with the LigaSure machine, cauterized, and dissected. The cardinal ligaments were further grasped, dissected, and suture ligated, again with the L igaSure machine. At that point, the LigaSure machine instrument was stopped and straight Zeppelin clamps were used on the cardinal ligaments down towards the uterosacral ligaments. The cardinal ligaments were grasped, dissected with a scalpel and then ligated with transfixion sutures with #1 Vicryl suture down to the uterosacral ligaments. The uterosacral ligaments were grasped, dissected, and suture ligated again with #1 Vicryl suture and transfixion sutures. At that time, the bladder had been pushed over the vagina and at this time right-angle Zeppelin clamps were placed on the vagina at the level of the cervix, and using the Noni scissors, the cervix was dissected away from the vagina. At this time, the vaginal cuff was then closed using interrupted sutures of #1 Vicryl suture from the midline to each lateral corner. After the good hemostasis had been achieved in the vaginal cuff, both the right and left adnexa was visualized and no more bleeding was noted. The cuff was intact with no bleeding noted. The bladder was visualized and no bleeding was noted. Seprafilm was then placed over the vaginal cuff. The Freddie self-retaining retractor was removed as well as the anterior and inferior blades. The lap packs were removed, and at this time, general closure of the abdomen was carried out. The peritoneum was closed with a 2-0 Vicryl suture and continuous running suture. The fascia was closed using a #1 Vicryl suture from each corner to the midline. Subcutaneous tissue was cauterized. No bleeding was noted. The subcutaneous tissue was then reapproximated using plain sutures and interrupted sutures, and the skin was closed using Insorb absorbable subcuticular van. The patient tolerated the procedure well and was transferred to the recovery room in excellent condition. The patient returned to the floor for recovery.
--- NOTE | 2024-04-05 14:40 | ANE.PACU2 ---
Inpatient post-anesthesia follow up: Airway intact: Yes Vital signs: Temperature 98.2 F Pulse Rate 72 Respiratory Rate 16 Blood Pressure 132/78 Pulse Oximetry 96 Oxygen Delivery Me thod Room Air Oxygen Flow Rate 6 Fraction of Inspir ed Oxygen Hydration adequate: Yes Nausea and vomiting: No Pain level: 1 Mental status: Baseline
[2024-04-05] MEDS: HYDROcodone-acetaminophen 5-325 mg Tablet PO ×2 (15:17→21:27)
[2024-04-05] MEDS: dextrose 5%-lactated ringers 1,000 ML 125 ML IV ×2 (15:18→23:30)
[2024-04-05] MEDS: HYDROmorphone 1 mg/mL INJ 1 mL 0.4 MG IVP ×2 (17:12→22:12)
--- NOTE | 2024-04-05 17:23 | ECG_ITS ---
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 Measurements Intervals [place] Rate: 99 P: 37 [place]: 156 QRS: 54 QRSD: 101 T: 16 QT: 361 QTc: 464 Interpretive Statements SINUS RHYTHM NONSPECIFIC T-WAVE ABNORMALITY Compared to ECG 03/29/2024 10:15:36 T-wave abnormality now present Sinus bradycardia no longer present Electronically Signed On 04-05-2024 21:39:50 CDT by Saúl Knight M.D. [id number]
--- NOTE | 2024-04-05 17:26 | PC.NURSE ---
THIS SECTIONIZER PUSHED DILAUDID ORDERED AND UNTIL 2-3 MINUTES PATIENT STATED C/O OF CHEST PAIN. VITALS WERE STABLE AND THIS SECTIONIZER ORDERED STAT EKG AND NOTIFIED DR. CHANEL AND HE TOLD US TO CALL HIM WITH RESULTS AND UPDATE.
[2024-04-05] MEDS: losartan 50 mg Tablet PO (18:50)
[2024-04-05] MEDS: docusate sodium 100 mg Capsule PO (18:50)
[2024-04-05] MEDS: metoprolol tartrate 25 mg Tablet 50 MG PO (18:50)
[2024-04-05] MEDS: simethicone 80 mg Chew PO (21:27)
[2024-04-06] VITALS (8 sets, daily range): BP systolic 116–153; BP diastolic 71–88; PULSE 72–87; RESP 16–18; TEMP 36.7–36.9; O2SAT 95–97
[2024-04-06] MEDS: HYDROcodone-acetaminophen 5-325 mg Tablet PO ×3 (04:01→18:34)
[2024-04-06 06:01] LABS: Hematocrit 38.2 % (36-47); Mean Corpuscular HGB Conc 32.5 g/dL (30-55); Mean Corpuscular Hemoglobin 29.1 pg (27-33); Mean Corpuscular Volume 89.7 fl (85-98); Mean Platelet Volume 8.7 fL (7.4-10.4); Platelet Count 389 10^3/cmm (157-399); Red Blood Count 4.26 10^6/uL (3.85-5.65); Red Cell Distribution Width 12.8 % (12.1-15.1); White Blood Count 19.34 10^3/uL (3.29-11.43)
[2024-04-06] MEDS: docusate sodium 100 mg Capsule PO ×2 (09:08→18:33)
[2024-04-06] MEDS: amlodipine 5 mg Tablet PO (09:08)
[2024-04-06] MEDS: losartan 50 mg Tablet PO ×2 (09:08→18:34)
[2024-04-06] MEDS: pantoprazole DR 40 mg Tablet PO (09:08)
[2024-04-06] MEDS: metoprolol tartrate 25 mg Tablet 50 MG PO ×2 (09:08→18:33)
[2024-04-06] MEDS: levothyroxine 125 mcg Tablet PO (09:08)
[2024-04-06] MEDS: valACYclovir 1,000 mg Tablet 500 MG PO (09:49)
[2024-04-06] MEDS: HYDROmorphone 1 mg/mL INJ 1 mL 0.4 MG IVP ×2 (12:27→23:30)
--- NOTE | 2024-04-06 13:47 | PM.PN ---
Subjective Subjective: Mrs. Sutherland 38 years old status post total abdominal hysterectomy with right salpingo-oophorectomy day 1. Refers tenderness at the incision site Vitals/I&O/Wt Last Vital Signs Temp 98.2 F 04/06/24 09:30 Pulse 72 04/06/24 09:30 Resp 16 04/06/24 12:27 BP 132/78 04/06/24 09:30 Pulse Ox 96 04/06/24 09:30 O2 Del Method Room Air 04/06/24 09:30 O2 Flow Rate 6 04/05/24 14:25 04/05/24 04/06/24 04/06/24 22:59 06:59 14:59 Intake Total 1791.667 / 3441.667 208.333 / 208.333 Output Total 875 / 1075 1825 / 2900 600 / 600 Balance -875 / 575 -33.333 / 541.667 -391.667 / -391.667 Weight last 48 hrs Weight 78.925 kg Physical Exam Narrative: GA: Alert and oriented ?3. HEENT: WNL. Heart: Regular rate and rhythm. Lungs: Clear to auscultation bilaterally. Abdomen: Bowel sounds present, nontender, moderate tenderness, incision clean and dry, no redness, pain or edema. 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 Extremities: No edema, no cyanosis, no calves pain. Urinary Catheter Management: Parrish: Cath Placed During This Visit: yes, but has since been removed by the nurse Reason for Continuing Indwelling Catheter: Decision to DC Catheter Urinary Catheter Date of Insertion: 04/05/24 Urinary Catheter Time of Insertion: 12:05 Date Urinary Catheter Removed: 04/06/24 Time Urinary Catheter Discontinued: 05:50 Data 04/07/24 05:31 03/29/24 10:00 A&P Assessment and plan (1) Status post abdominal hysterectomy and right salpingo-oophorectomy: Mrs. Sutherland 38-year-old female is status post total abdominal hysterectomy with right salpingo-oophorectomy postoperative day 1. Tolerating diet well. Ambulating without difficulty. She is afebrile hemodynamically stable. Plan Repeat CBC tomorrow morning Continue postop observation Attestations Medical Necessity Statement*: In my professional opinion per admitting diagnosis Coding Level of Care Code Acute Code for Chg Fwd Diagnoses Status post abdominal hysterectomy and right salpingo-oophorectomy Z90.710; Z90.721; Z90.79
[2024-04-07] MEDS: HYDROcodone-acetaminophen 5-325 mg Tablet PO ×2 (02:39→09:22)
[2024-04-07 04:50] VITALS: BP 126/78; PULSE 82; RESP 16; TEMP 36.8; O2SAT 97
[2024-04-07 05:36] LABS: Hematocrit 36.4 % (36-47); Mean Corpuscular HGB Conc 32.1 g/dL (30-55); Mean Corpuscular Hemoglobin 29.6 pg (27-33); Mean Corpuscular Volume 92.2 fl (85-98); Mean Platelet Volume 8.7 fL (7.4-10.4); Platelet Count 364 10^3/cmm (157-399); Red Blood Count 3.95 10^6/uL (3.85-5.65); Red Cell Distribution Width 12.6 % (12.1-15.1); White Blood Count 14.15 10^3/uL (3.29-11.43)
[2024-04-07 05:55] LABS: Absolute Eosinophils 0.4 10^3/cmm (0.0-0.7); Absolute Segmented Neutrophil 9.8 10/cmm (1.6-7.1); Eosinophils 3 %; Lymphocytes 22 %; Monocytes Absolute 0.8 10^3/cmm (0.1-0.6); Segmented Neutrophils 69 %; Total Cells Counted 100 (0-100)
[2024-04-07 05:56] LABS: Platelet Estimate Normal (Normal)
[2024-04-07] MEDS: levothyroxine 125 mcg Tablet PO (09:22)
[2024-04-07] MEDS: docusate sodium 100 mg Capsule PO (09:22)
[2024-04-07] MEDS: pantoprazole DR 40 mg Tablet PO (09:23)
[2024-04-07] MEDS: metoprolol tartrate 25 mg Tablet 50 MG PO (09:23)
[2024-04-07] MEDS: valACYclovir 1,000 mg Tablet 500 MG PO (09:23)
[2024-04-07 09:25] VITALS: BP 134/84; PULSE 79; RESP 16; TEMP 36.8; O2SAT 95
[2024-04-07 09:31] VITALS: BP 134/84
[2024-04-07] MEDS: losartan 50 mg Tablet PO (09:31)
[2024-04-07] MEDS: amlodipine 5 mg Tablet PO (09:31)
--- NOTE | 2024-04-07 12:41 | P.DS_ITS ---
Discharge Providers IMPROVEMENT MANAGER Date of Admission: 04/05/24 14:09 Date of Discharge: 04/07/24 Attending Provider at Admission: Freddy Gibson MD Attending Provider at Discharge: Freddy Gibson MD Primary Care Provider: Jesus Lazo MD Diagnoses at Discharge Discharge Diagnosis (1) Status post abdominal hysterectomy and right salpingo-oophorectomy: Status: Acute Reason for Visit Reason for Visit: R10.2 Hospital Course Hospital Course Ms. Sutherland is a 38 year old , with a history of chronic pelvic pain, dysmenorrhea, uterine fibroid and right ovarian cyst. Admitted for planned total abdominal hysterectomy with right salpingo-oophorectomy. The procedures were performed without complication. observation significant for chest pain the postoperative day 1 EKG was within normal limits. She is tolerating diet well. Ambulating without difficulty. Pain under control. She is afebrile and hemodynamically stable postoperative day 2. She was counseled regarding pelvic rest for 6 weeks (no sex, no tampons, no vaginal douches). Return to the emergency room if any fever, increased bleeding or pain. Physical Exam Narrative: GA: Alert and oriented ?3. HEENT: WNL. Heart: Regular rate and rhythm. Lungs: Clear to auscultation bilaterally. Abdomen: Bowel sounds present, nontender, minimal tenderness, incision clean and dry, no redness, pain or edema. 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 Extremities: No edema, no cyanosis, no calves pain. Urinary Catheter Management: Parrish: Cath Placed During This Visit: yes, but has since been removed by the nurse Reason for Continuing Indwelling Catheter: Decision to DC Catheter Urinary Catheter Date of Insertion: 04/05/24 Urinary Catheter Time of Insertion: 12:05 Date Urinary Catheter Removed: 04/06/24 Time Urinary Catheter Discontinued: 05:50 History History History 2 Term 2 0 Miscarriages/Ectopic 0 Living Children 1 Discharge Data Studies Completed and Pending Pending at discharge Category Date Time Status Pathology: Surgical [PTH] Routine Pth 04/05/24 13:34 Received Laboratory Results WBC 14.15 10^3/uL (3.29-11.43) H 04/07/24 05:31 RBC 3.95 10^6/uL (3.85-5.65) 04/07/24 05:31 Hgb 11.70 g/dL (11.27-16.99) 04/07/24 05:31 Hct 36.4 % (36-47) 04/07/24 05:31 MCV 92.2 fl (85-98) 04/07/24 05:31 MCH 29.6 pg (27-33) 04/07/24 05:31 MCHC 32.1 g/dL (30-55) 04/07/24 05:31 RDW 12.6 % (12.1-15.1) 04/07/24 05:31 Plt Count 364 10^3/cmm (157-399) 04/07/24 05:31 MPV 8.7 fL (7.4-10.4) 04/07/24 05:31 Neut % (Auto) 58.9 % 03/29/24 10:00 Lymph % (Auto) 29.9 % 03/29/24 10:00 [place] % (Auto) 7.8 % 03/29/24 10:00 Eos % (Auto) 2.4 % 03/29/24 10:00 Baso % (Auto) 0.5 % 03/29/24 10:00 Neut # (Auto) 5.15 10^3/uL (1.8-7.7) 03/29/24 10:00 Lymph # (Auto) 2.6 10^3/uL (0.8-4.8) 03/29/24 10:00 [place] # (Auto) 0.7 10^3/uL (0.2-0.9) 03/29/24 10:00 Eos # (Auto) 0.2 10^3/uL (0.0-0.8) 03/29/24 10:00 Baso # (Auto) 0.0 10^3/uL (0.0-0.1) 03/29/24 10:00 Nucleated RBC % (auto) 0 % 03/29/24 10:00 Total Counted 100 (0-100) 04/07/24 05:31 Atypical Lymphs % Not Reportable 04/07/24 05:31 Segmented Neutrophils 69 % 04/07/24 05:31 Abs Segm Neuts (Man) 9.8 10/cmm (1.6-7.1) H 04/07/24 05:31 Band Neutrophils Not Reportable 04/07/24 05:31 Lymphocytes (Manual) 22 % 04/07/24 05:31 Monocytes (Manual) 6.0 % 04/07/24 05:31 Absolute Monocytes 0.8 10^3/cmm (0.1-0.6) H 04/07/24 05:31 Eosinophils (Manual) 3 % 04/07/24 05:31 Absolute Eosinophils 0.4 10^3/cmm (0.0-0.7) 04/07/24 05:31 Basophils (Manual) 0.0 % 04/07/24 05:31 Absolute Basophils 0.0 10^3/cmm (0.0-0.2) 04/07/24 05:31 Nucleated RBCs # 0.0 /100WBC 03/29/24 10:00 Platelet Estimate Normal (Normal) 04/07/24 05:31 Sodium 138 mmol/L (136-145) 03/29/24 10:00 Potassium 4.0 mmol/L (3.5-5.1) 03/29/24 10:00 Chloride 101 mmol/L (98-107) 03/29/24 10:00 Carbon Dioxide 23 mmol/L (22-29) 03/29/24 10:00 Anion Gap 18.0 (5-19) 03/29/24 10:00 BUN 13 mg/dL (6-20) 03/29/24 10:00 Creatinine 0.6 mg/dL (0.5-0.9) 03/29/24 10:00 GFR Calculation 111.9 mL/min (90-130) 03/29/24 10:00 Glucose 106 mg/dL (65-115) 03/29/24 10:00 Calculated Osmolality 287 mOsm/kg (285-295) 03/29/24 10:00 Calcium 8.7 mg/dL (8.5-10.5) 03/29/24 10:00 Total Bilirubin 0.2 mg/dL (0.15-1.2) 03/29/24 10:00 AST 19 U/L (0-32) 03/29/24 10:00 ALT 28 U/L (0-33) 03/29/24 10:00 Alkaline Phosphatase 65 U/L (35-105) 03/29/24 10:00 Total Protein 7.5 g/dL (6.6-8.7) 03/29/24 10:00 Albumin 4.6 g/dL (3.5-5.2) 03/29/24 10:00 Globulin 2.9 g/dL (1.3-4.6) 03/29/24 10:00 Urine Color Yellow (Yellow) 03/29/24 09:40 Urine Appearance Clear (CLEAR) 03/29/24 09:40 Urine pH 5.5 (5-7) 03/29/24 09:40 Ur Specific Mcclellan 1.026 (1.005-1.030) 03/29/24 09:40 Urine Protein 1+ (Negative) A 03/29/24 09:40 Urine Glucose (UA) Negative (Normal) 03/29/24 09:40 Urine Ketones Negative (Negative) 03/29/24 09:40 Urine Blood Negative (Negative) 03/29/24 09:40 Urine Nitrate Negative (Negative) 03/29/24 09:40 Urine Bilirubin Negative (Negative) 03/29/24 09:40 Urine Urobilinogen 1.0 mg/dL (Negative) 03/29/24 09:40 Ur Leukocyte Esterase Negative (Negative) 03/29/24 09:40 Urine RBC None /hpf (0-2) 03/29/24 09:40 Urine WBC 5-10 /hpf (0-5) H 03/29/24 09:40 Ur Squamous Epith Cells 10-15 /hpf (0-5) H 03/29/24 09:40 Amorphous Sediment Not Reportable 03/29/24 09:40 Urine Bacteria None /hpf (NONE) 03/29/24 09:40 Urine Mucus None /hpf 03/29/24 09:40 Urine HCG, Qual Negative (Negative) 04/05/24 09:03 Blood Type O Positive 04/05/24 09:25 Rho(D) Type Rh positive 04/05/24 09:25 Antibody Screen Negative 04/05/24 09:25 Vitals Last Vital Signs Temp 98.3 F 04/07/24 09:25 Pulse 79 04/07/24 09:25 Resp 16 04/07/24 09:25 BP 134/84 04/07/24 09:31 Pulse Ox 95 04/07/24 09:25 O2 Del Method Room Air 04/07/24 09:25 O2 Flow Rate 6 04/05/24 14:25 Results Labs OB ([facility]): Blood Type O Positive 04/05/24 Antibody Screen Negative 04/05/24 Hct 36.4 % (36-47) 04/07/24 Hgb 11.70 g/dL (11.27-16.99) 04/07/24 Rho(D) Type Rh positive 04/05/24 Plt Count 364 10^3/cmm (157-399) 04/07/24 Hep Bs Antibody 995.6 (11.5-1000) 11/13/22 Rubella IgG Antibody > 500.0 IU/mL (0.0-10.0) H 11/13/22 TSH 0.38 uIU/mL (0.27-4.20) 12/28/23 VZV IgG Antibody 3998.00 index 11/13/22 FSH 5.9 mIU/mL 12/28/23 Ser , Semi-Qnt 1.00 mIU/mL 09/16/22 HCG, Qual Negative (Negative) 09/30/22 Pap Smear Interpret See note 12/28/23 Prolactin 6.85 ng/mL (4.8-23.3) 09/16/22 Discharge Plan Discharge Patient Disposition: Home Condition: Stable Prescriptions: New hydrocodone-acetaminophen 5-325 mg tablet 1 tab PO Q4H PRN (Reason: pain) Qty: 30 0RF metronidazole 500 mg tablet 500 mg PO BID 14 Days Qty: 28 0RF Continued metoclopramide HCl [Reglan] 10 mg tablet 10 mg PO QID PRN (Reason: nausea and vomiting) Qty: 120 5RF Rx Instructions: before meals and bedtime metoprolol tartrate 50 mg tablet 50 mg PO BID Qty: 180 3RF losartan 50 mg tablet 50 mg PO BID Qty: 180 3RF valacyclovir 500 mg tablet 500 mg PO DAILY Qty: 90 0RF amlodipine 5 mg tablet 5 mg PO DAILY Qty: 90 3RF pantoprazole 40 mg tablet,delayed release (DR/EC) 40 mg PO DAILY Qty: 60 0RF levothyroxine 125 mcg tablet 125 mcg PO DAILY Qty: 60 0RF Discharge Orders: Discharge Order (Routine); Ordered 04/07/24 Ordered By: Freddy Gibson Referrals: Freddy Gibson MD [Physician] - 2 weeks Discharge Diet: Usual diet Discharge Activity: Limit activity as instructed Patient Instructions: Hydrocodone/Acetaminophen (By mouth), Acute Wound Care (DC), Salpingo-Oophorectomy (DC), Hysterectomy (DC), OB Abdominal Surgery - [facility], OB Discharge Report, OB Food/Drug Interaction Guide, Opioid Safety, Post Anesthesia Care, Hysterectomy (GEN) Activity Restrictions/Additional Instructions: 1. Please call [facility] clinic on next working day to make your post-operative appointment in 2 weeks. 2. Please stay home until you come back to the clinic on first post- hospatilization check up. 3. Please follow instructions on your medications CAREFULLY. 4. If you have abdominal incision, do not cover it unless dressing is necessary because of drainage. OK to shower, but avoid bath. Leave steri-strips until they fall off. If they are still on one week after surgery, you may remove them. 5. If you had vaginal surgery or vaginal repair, Dr. Gibson may instruct you to take SITZ bath. 6. Yellow, blood tinged odorous vaginal discharge is usually normal after h ysterectomy or vaginal surgeries. 7. No SEXUAL INTERCOURSE, tampons, or douches until you are completely released from the post-operative care. 8. Avoid constipation by eating right and maybe using some Metamucil or Milk of Magnesia. 9. All prescription refills are given during the working hours. Please do no wait till it runs out. Call the clinic at [phone] before your medication runs out. The clinic will get in touch with your doctor to prescribe medications if necessary. 10. Please remain within 40 mile radius from our hospital because emergencies do happen now and then during the post-operative period. 11. If you have stairs at home, take one step at a time slowly and minimize the number of trips. It helps to stay in one floor for the next few days. No lifting except what you can lift by one hand until you are released from the post-operative care. 12. Driving is discouraged until you are well healed. It may be 3-4 weeks before you feel strong enough to drive. You should be able to turn and look through the rear window without pain and you should be able to push the brake pedal very hard without pain before you drive. No fast rules, but SAFETY should be your primary concern. DO NOT drive if you are on sedating medications such as narcotics. 13. Call the clinic (during working hours) to make urgent appointment or go to the Emergency room, if any of the following occurs: i. Vaginal bleeding becomes heavy, more than a period. ii. Incision becomes red and sore, or drains pus. iii. Your TEMPERATURE is over 100.4F or you have chill. iv. IV site becomes red and swollen (a little ``knot?? is usually OK) v. Persistent nausea and vomiting vi. Persistent constipation or diarrhea vii. Rash or allergic reaction to medications. Discharge Attestations IMPROVEMENT MANAGER Time Spent in Discharge Care*: greater than 30 min Coding Level of Care Code Acute Code for Chg Fwd Diagnoses Status post abdominal hysterectomy and right salpingo-oophorectomy Z90.710; Z90.721; Z90.79
[2024-04-07 14:45] VITALS: BP 128/79; PULSE 82; RESP 16; TEMP 36.9; O2SAT 95
== END 2024-04-07 14:45 | disposition home or self-care (01) | DRG 743 ==
LOC: OBGYN 23:29
PROVIDERS: Admitting Provider Obstetrics & Gynecology; PCP Family Medicine Adult Medicine; Visit Provider Obstetrics & Gynecology
PROC: 0UT90ZZ Resection of Uterus, Open Approach (ICD-10-PCS; CPT 58150; principal; 2024-04-05 10:15)
PROC: 0UT90ZZ Resection of Uterus, Open Approach (ICD-10-PCS; CPT 58720; 2024-04-05 10:15)
DX: N94.6 Dysmenorrhea, unspecified (principal); N94.10 Unspecified dyspareunia; N83.201 Unspecified ovarian cyst, right side; G89.29 Other chronic pain; R10.2 Pelvic and perineal pain; I10 Essential (primary) hypertension; E03.9 Hypothyroidism, unspecified; K21.9 Gastro-esophageal reflux disease without esophagitis; D25.1 Intramural leiomyoma of uterus; D25.0 Submucous leiomyoma of uterus; D25.2 Subserosal leiomyoma of uterus; N93.9 Abnormal uterine and vaginal bleeding, unspecified
CPT/HCPCS: 36415; 51702; 80053; 81003; 81015; 81025; 85007; 85025; 85027; 86850; 86900; 88307; 93005; C9290; J0131; J0690; J1100; J1170; J1200; J2250; J2405; J2710; J3010; J3490; J7030; J7040; J7121

== ENCOUNTER → 2024-04-26 12:39 | Outpatient (BNVA) | payer OTHER, SELFPAY | PROVIDERS: PCP Family Medicine Adult Medicine; Visit Provider Nurse Practitioner Women's Health | DX: R35.0 Frequency of micturition (principal) | CPT/HCPCS: 87086 ==

== ENCOUNTER → 2024-10-24 10:08 | Outpatient (BNVA) | payer OTHER, SELFPAY | PROVIDERS: PCP Family Medicine; Visit Provider Family Medicine | DX: E03.9 Hypothyroidism, unspecified (principal) | CPT/HCPCS: 84443 ==

== ENCOUNTER → 2024-12-14 10:19 | Outpatient (BNVA) | payer OTHER, SELFPAY | PROVIDERS: PCP Family Medicine; Visit Provider Nurse Practitioner Family | DX: I10 Essential (primary) hypertension (principal); R07.9 Chest pain, unspecified; R00.2 Palpitations | CPT/HCPCS: 36415; 80053; 83880; 85025; 93005 ==

== ENCOUNTER 2024-12-22 12:41 | Outpatient (CLI) | payer OTHER, SELFPAY ==
--- NOTE | 2024-12-22 12:48 | XR_ITS ---
WS: [id number] PA and lateral chest, 12/22/2024 Clinical Data: left chest pain, high wbc ct Comparison: None. Findings: No nodules, masses or effusions are seen. The pulmonary vascularity is normal. The heart is not enlarged. No pneumonia or pneumothorax is seen. XR/XR chest 2V* [id number] Impression: Negative chest.
== END 2024-12-22 12:42 | disposition home or self-care (01) ==
PROVIDERS: PCP Family Medicine; Visit Provider Family Medicine
DX: R07.9 Chest pain, unspecified (principal); D72.9 Disorder of white blood cells, unspecified
CPT/HCPCS: 71046; 87086

== ENCOUNTER 2025-01-16 12:30 | Oncology outpatient (recurring) (ONCR) | payer OTHER, SELFPAY ==
[2024-12-28 10:42] LABS: Basophils % 0.5 %; Eosinophils # 0.2 10^3/uL (0.0-0.8); Eosinophils % 2.7 %; Hematocrit 41.7 % (36-47); Lymphocytes # 2.8 10^3/uL (0.8-4.8); Lymphocytes % 34.4 %; Mean Corpuscular HGB Conc 32.4 g/dL (30-55); Mean Corpuscular Volume 86.5 fl (85-98); Mean Platelet Volume 8.3 fL (7.4-10.4); Monocytes # 0.7 10^3/uL (0.2-0.9); Monocytes % 9.2 %; Neutrophils # 4.24 10^3/uL (1.8-7.7); Nucleated Red Blood Cells % 0 %; Platelet Count 390 10^3/cmm (157-399); Red Blood Count 4.82 10^6/uL (3.85-5.65); Red Cell Distribution Width 11.9 % (12.1-15.1); White Blood Count 8.02 10^3/uL (3.29-11.43)
[2024-12-28 10:47] LABS: Erythrocyte Sedimentation Rate 8 mm/hr (0-15)
[2024-12-28 10:59] LABS: Alanine Aminotransferase 21 U/L (0-33); Albumin Level 4.6 g/dL (3.5-5.2); Alkaline Phosphatase 76 U/L (35-105); Anion Gap 17.9 (5-19); Aspartate Amino Transferase 18 U/L (0-32); Blood Urea Nitrogen 12 mg/dL (6-20); Calcium 9.2 mg/dL (8.5-10.5); Carbon Dioxide 24 mmol/L (22-29); Chloride 102 mmol/L (98-107); Globulin 3.4 g/dL (1.3-4.6); Glomerular Filtration Rate 137.4 mL/min (90-130); Glucose 97 mg/dL (65-115); Lactate Dehydrogenase 129 U/L (135-214); Osmolality Calculated 290 mOsm/kg (285-295); Potassium 3.9 mmol/L (3.5-5.1); Sodium 140 mmol/L (136-145); Total Bilirubin 0.2 mg/dL (0.15-1.2); Uric Acid 7.8 mg/dL (2.4-5.7)
[2024-12-29 13:19] LABS: Leukemia Profile (BBPL) See Report
[2025-01-22 16:54] LABS: CALR Exon 9 Mutation NOT DETECTED (NOT DETECTED); JAK2 Exon 12 Mutation NOT DETECTED (NOT DETECTED); JAK2 V617 Clinical Indication leukocytosis; JAK2 V617 Mutation NOT DETECTED (NOT DETECTED); MPL Exon 10 Mutation NOT DETECTED (NOT DETECTED); Specimen Source NG
== END 2025-01-23 23:59 | disposition home or self-care (01) ==
PROVIDERS: Internal Medicine; PCP Family Medicine; Visit Provider Family Medicine
DX: Z53.9 Procedure and treatment not carried out, unspecified reason; D72.829 Elevated white blood cell count, unspecified; D75.839 Thrombocytosis, unspecified
CPT/HCPCS: 36415; 80053; 81219; 81270; 81279; 81339; 83615; 84550; 85025; 85651; 88184; 88185

== ENCOUNTER 2025-07-25 08:37 | Oncology outpatient (recurring) (ONCR) | payer OTHER, SELFPAY ==
[2025-07-25 09:04] LABS: Hematocrit 43.9 % (36-47); Hemoglobin 14.10 g/dL (11.27-16.99); Mean Corpuscular HGB Conc 32.1 g/dL (30-55); Mean Corpuscular Hemoglobin 27.2 pg (27-33); Mean Corpuscular Volume 84.6 fl (85-98); Nucleated Red Blood Cells % 0 %; Platelet Count 412 10^3/cmm (157-399); Red Blood Count 5.19 10^6/uL (3.85-5.65); White Blood Count 11.18 10^3/uL (3.29-11.43)
[2025-07-25 09:25] LABS: Alanine Aminotransferase 25 U/L (0-33); Albumin Level 4.7 g/dL (3.5-5.2); Alkaline Phosphatase 65 U/L (35-105); Anion Gap 17.3 (5-19); Aspartate Amino Transferase 22 U/L (0-32); Blood Urea Nitrogen 13 mg/dL (6-20); Calcium 9.5 mg/dL (8.5-10.5); Carbon Dioxide 24 mmol/L (22-29); Chloride 99 mmol/L (98-107); Globulin 3.5 g/dL (1.3-4.6); Glucose 117 mg/dL (65-115); Osmolality Calculated 285 mOsm/kg (285-295); Potassium 3.3 mmol/L (3.5-5.1); Sodium 137 mmol/L (136-145); Total Protein 8.2 g/dL (6.6-8.7)
== END 2025-07-26 23:59 | disposition home or self-care (01) ==
LOC: ONCMED 08:38
PROVIDERS: Internal Medicine; PCP Family Medicine; Visit Provider Family Medicine
DX: D72.829 Elevated white blood cell count, unspecified (principal)
CPT/HCPCS: 36415; 80053; 83615; 85025; 85651; 86140